=== PATIENT | male | born 1965 | race African-American/Black ===

== ENCOUNTER 2020-09-16 00:44 | Emergency (ER) | payer OTHER ==
[~2020-09-16] VITALS: Ht 182.9 cm; Wt 86.2 kg
[2020-09-16 00:51] VITALS: Ht 182.9 cm; Wt 86.2 kg
[2020-09-16 01:51] LABS: BASOPHIL % 0.5 % (0-2); PLATELET COUNT 366 x10^3mcL (130-400)
[2020-09-16 01:55] LABS: RED CELL DISTRIBUTION WIDTH 15.7 % (11.5-14.5)
[2020-09-16 02:12] LABS: CALCIUM 8.8 mg/dL (8.5-10.1); CARBON DIOXIDE 32.8 mmol/L (21-32); CHLORIDE SERUM 102 mmol/L (98-107); CREATININE SERUM 1.1 mg/dL (0.7-1.3); GFR1 > 60 mL/min; GLUCOSE SERUM 94 mg/dL (74-106); POTASSIUM SERUM 3.8 mmol/L (3.5-5.1); SODIUM SERUM 140 mmol/L (136-145)
[2020-09-16 02:17] LABS: ALBUMIN 3.5 g/dL (3.4-5.0); ALKALINE PHOSPHATASE 86 U/L (46-116); ALT/SGPT 18 U/L (16-63); AST/SGOT 12 U/L (15-37); BILIRUBIN TOTAL 0.3 mg/dL (0.20-1.00); LIPASE 157 IU/L (73-393); TOTAL PROTEIN, SERUM 6.9 g/dL (6.4-8.2)
[2020-09-16 06:55] VITALS: BP 132/75
== END 2020-09-16 06:55 | disposition home or self-care (01) ==
LOC: ED 00:44
PROVIDERS: Student in an Organized Health Care Education/Training Program
DX: K80.20 Calculus of gallbladder without cholecystitis without obstruction (principal); I10 Essential (primary) hypertension
CPT/HCPCS: 82962; J2270; Q0162

== ENCOUNTER 2020-12-29 21:21 | Emergency (ER) | payer OTHER ==
[~2020-12-29] VITALS: Ht 177.8 cm; Wt 84.8 kg
[2020-12-29 21:26] VITALS: Ht 177.8 cm; Wt 84.8 kg
[2020-12-29 23:40] LABS: PLATELET COUNT 370 x10^3mcL (152-348)
[2020-12-29 23:41] LABS: RED CELL DISTRIBUTION WIDTH 15.8 % (12.1-16.2)
[2020-12-29 23:49] LABS: ALBUMIN 3.8 g/dL (3.4-5.0); ALKALINE PHOSPHATASE 116 U/L (46-116); ALT/SGPT 23 U/L (16-63); AMYLASE 102 U/L (25-115); AST/SGOT 24 U/L (15-37); BILIRUBIN TOTAL 0.52 mg/dL (0.20-1.00); CALCIUM 9.4 mg/dL (8.5-10.1); CARBON DIOXIDE 23.7 mmol/L (21-32); CHLORIDE SERUM 101 mmol/L (98-107); CREATININE SERUM 1.2 mg/dL (0.7-1.3); GFR1 > 60 mL/min; GLUCOSE SERUM 110 mg/dL (74-106); LIPASE 168 IU/L (73-393); POTASSIUM SERUM 4.3 mmol/L (3.5-5.1); SODIUM SERUM 137 mmol/L (136-145); TOTAL PROTEIN, SERUM 7.6 g/dL (6.4-8.2)
[2020-12-30 00:07] LABS: AMPHETAMINE QUAL UR NONE DETECTED (See below)
[2020-12-30] MEDS ORDERED: PRI20 PO (00:08)
[2020-12-30] MEDS ORDERED: ONDANSETRON4 M3 PO (00:08)
[2020-12-30 00:14] LABS: BAND NEUTROPHIL 2 % (0-10); BASOPHIL 0 % (0-2); MONOCYTE 1 % (0-7); SEGMENTED NEUTROPHILS 88 % (37-75); rbc morphology (normal/abnorm) ABNORMAL (NORMAL)
[2020-12-30 01:11] VITALS: BP 125/82
== END 2020-12-30 01:11 | disposition home or self-care (01) ==
LOC: ED 21:21
PROVIDERS: Specialist
DX: R10.13 Epigastric pain (principal); D72.829 Elevated white blood cell count, unspecified; I10 Essential (primary) hypertension; Z98.890 Other specified postprocedural states
CPT/HCPCS: G0480; J1885; J7030